=== PATIENT | female | born 1980 | race African-American/Black ===

== ENCOUNTER 2022-08-24 10:34 | Emergency (ER) | payer BC ==
[~2022-08-24] VITALS: Ht 165.1 cm; Wt 112.0 kg
[2022-08-24 11:12] LABS: BASOPHILS % 0.5 % (0.0-2.0); HEMATOCRIT. 41.5 % (36.0-48.0); HEMOGLOBIN. 13.9 g/dL (12.0-16.0); LYMPHOCYTES % 23.8 % (20.0-50.0); MEAN CORPUSCULAR HEMOGLOBIN 31.2 pg (28.0-32.0); MEAN CORPUSCULAR VOLUME 92.8 fL (81.0-99.0); MEAN PLATELET VOLUME 7.1 fl (7.4-10.4); MONOCYTES % 4.2 % (2.0-8.0); NEUTROPHILS % 70.5 % (40.0-76.0); PLATELET 381 x1000/uL (130-400); RED BLOOD CELL COUNT 4.47 mill/uL (4.2-5.4); RED CELL DISTRIBUTION WIDTH 13.3 % (11.6-14.6)
[2022-08-24 11:21] LABS: CHLORIDE 105 mEq/L (98-107)
[2022-08-24 11:47] LABS: CLARITY URINE TURBID (CLEAR); COLOR URINE DARK YELLOW (YELLOW); KETONES URINE TRACE (NEGATIVE); LEUKOCYTE ESTERASE URINE NEGATIVE (NEGATIVE); NITRITE URINE NEGATIVE (NEGATIVE); OCCULT BLOOD URINE TRACE (NEGATIVE); PH URINE 5.5 (4.5-8.0); PROTEIN URINE 2+ (NEGATIVE); SPECIFIC GRAVITY URINE 1.028 (1.005-1.030)
[2022-08-24] MEDS ORDERED: ONDANSETRON 4MG ODT PO SCH (15:00)
[2022-08-24] MEDS ORDERED: ACETAMINOPHEN 325MG TABLET PO SCH (15:00)
[2022-08-24] MEDS ORDERED: ONDA4TAB50 MT (16:18)
[2022-08-24] MEDS ORDERED: POLY119P2 MT (16:18)
[2022-08-24] MEDS ORDERED: ACET-2708 MT (16:18)
[2022-08-24] MEDS ORDERED: OXYB5TAB17 MT (16:23)
[2022-08-24 17:50] VITALS: BP 132/80
== END 2022-08-24 18:03 | disposition home or self-care (01) ==
LOC: ER 10:50
DX: N83.201 Unspecified ovarian cyst, right side (principal); K59.00 Constipation, unspecified; R35.0 Frequency of micturition; Z79.899 Other long term (current) drug therapy
CPT/HCPCS: 36415; 74018; 76856; 80053; 81003; 81025; 83690; 84484; 85025; 93005; 99285; Q0162